=== PATIENT | female | born 1995 | race Hispanic/Latino ===

== ENCOUNTER 2018-06-28 20:34 | Emergency (ER) | payer OTHER ==
[2018-06-28 21:00] VITALS: BP 143/94; PULSE 81; RESP 16; TEMP 98.4; O2SAT 100
--- NOTE | 2018-06-28 22:24 | ED PDOC ---
HPI: Head Injury History Per: Patient History/Exam Limitations: no limitations Injury Occurred (Timing): Days Ago: (3 days ago) Additional Complaint(s): Pt. is a 22 y/o Female who reports head injury 3 d. ago when she stood up under the open dryer door, hitting her head. Pt reports mild headache at the time but otherwise felt well. Pt. reports the following day (2d. ago) she had episodes of feeling dizzy with mild headache, she went to urgent care and was dx'd with mild concussion. SHe reports symptoms haven't completely resolved and wax and wane. She returned to urgent care this am with normal exam. Pt. reports feeling well today but this evening she felt "off again". <Delma Kowalski - Last Filed: 06/28/18 22:19> <René Corey - Last Filed: 07/01/18 04:36> Time Seen by Provider: 06/28/18 21:35 Chief Complaint (Nursing): Trauma Past Medical History Vital Signs: Last Vital Signs Temp 98.4 F 06/28/18 20:54 Pulse 81 06/28/18 20:54 Resp 16 06/28/18 20:54 BP 143/94 H 06/28/18 20:54 Pulse Ox 100 06/28/18 20:54 - Medical History PMH: No Chronic Diseases - Surgical History Surgical History: No Surg Hx - Family History Family History: States: No Known Family Hx <Delma Kowalski S - Last Filed: 06/28/18 22:19> Vital Signs: Last Vital Signs Temp 98.4 F 06/28/18 20:54 Pulse 81 06/28/18 20:54 Resp 16 06/28/18 20:54 BP 143/94 H 06/28/18 20:54 Pulse Ox 100 06/28/18 22:28 <René Corey - Last Filed: 07/01/18 04:36> - Allergies Allergies/Adverse Reactions: Allergies Allergy/AdvReac Type Severity Reaction Status Date / Time No Known Allergies Allergy Verified 06/28/18 20:53 Physical Exam - Physical Exam Appears: Positive for: Well Head Exam: Positive for: ATRAUMATIC Skin: Positive for: Normal Color Eye Exam: Positive for: Normal appearance Neck: Positive for: Normal, Painless ROM Cardiovascular/Chest: Positive for: Regular Rate, Rhythm, Chest Non Tender Respiratory: Positive for: Normal Breath Sounds Neurologic/Psych: Positive for: Alert, running specialist II-XII, Oriented, Mood/Affect (slightly anxious), Gait (normal steady gait). Negative for: Motor/Sensory Deficits <Delma Kowalski - Last Filed: 06/28/18 22:19> - ECG O2 Sat by Pulse Oximetry: 100 <Delma Kowalski S - Last Filed: 06/28/18 22:19> Medical Decision Making Medical Decision Making: Pt very well appearing, neuro intact. symptoms consistent with postconcussion syndrome. D/w pt. at length that with very minor mechanism of injury, normal neuro exam, and no worsening of symptoms over past 3d., no indication for CT. Pt. agrees with plan. Will f/u with PMD or neuro (referred to by urgent care).pt ambulating with steady gait. <Delma Kowalski S - Last Filed: 06/28/18 22:19> Disposition - Patient ED Disposition Is Patient to be Admitted: No - Disposition Disposition: Routine/Home Disposition Time: 22:27 <Delma Kowalski S - Last Filed: 06/28/18 22:19> <René Corey - Last Filed: 07/01/18 04:36> - Clinical Impression Clinical Impression: Head injury - Disposition Condition: GOOD Instructions: Concussion, Adult (DC) Forms: [employer] (Greek) - PA / PORTER SAMPLE CASE / Resident Statement MD/DO has reviewed & agrees with the documentation as recorded. <René Corey - Last Filed: 07/01/18 04:36>
== END 2018-06-28 22:33 | disposition home or self-care (01) ==
LOC: H.ER 20:34
DX: S09.90XD Unspecified injury of head, subsequent encounter (principal); W22.09XD Striking against other stationary object, subsequent encounter